=== PATIENT | male | born 1970 | race Caucasian/White ===

== ENCOUNTER 2024-04-03 23:19 | Emergency (ER) | payer BC ==
[~2024-04-03 23:19] MED LIST: EPINEPHrine 10 ML SYRINGE (0.1 MG/ML) ONE; SODIUM BICARB 8.4% 50 ML SYR (1 MEQ/ML) ONE
--- NOTE | 2024-04-03 23:51 | ED ---
CPR HPI - General Stated Complaint: cardiac arrest Time Seen by Provider: 04/03/24 23:19 Source: family, EMS Mode of arrival: EMS Limitations: altered mental status - History of Present Illness Initial Comments: This patient is a 53-year-old man arriving by ambulance after becoming unresponsive. Patient not able to provide any history. The patient's subsequently provided history. She stated that he had been complaining of chest pain for much of the day. There was pain reportedly radiating to the bilateral elbows. He did not initially want to have medical treatment. She states that after eating she went to rest and he woke her up stating that he wanted to go to the hospital. He had some shortness of breath as well. She states that after leaving home, the patient suddenly developed convulsion or seizure. She stopped the vehicle called ambulance. Was reportedly about 5 minutes prior to EMS arrival. EMS instituted ACLS protocol and brought the patient here. Patient reported asystole MD Complaint: collapsed during rest -: minute(s) Place: other Bystander CPR Performed: No Downtime Before ACLS Arrival (mins): 5 Initial Findings in the Field: unresponsive, no respirations, no pulse ROSC in the Field: No Associated Injuries: No Associated Symptoms: chest pain, shortness of breath Treatments Prior to Arrival: intubation, chest compressions, epinephrine mgs # (2) - Related Data Allergies Allergy/AdvReac Type Severity Reaction Status Date / Time Unable to Assess Allergy Verified 04/03/24 23:58 Review of Systems ROS Statement: Those systems with pertinent positive or pertinent negative responses have been documented in the HPI. ROS Other: All systems not noted in ROS Statement are negative. Limitations: ROS unobtainable due to patients medical condition General Exam Limitations: altered mental status General appearance: other (Unresponsive) Head exam: Present: atraumatic, normocephalic Eye exam: Absent: scleral icterus, conjunctival injection ENT exam: Present: other (Endotracheal tube secured with bite block) Neck exam: Present: normal inspection. Absent: tenderness Respiratory exam: Present: other (There is no spontaneous inspiratory effort. Auscultation with bagging reveals breath sounds) Cardiovascular Exam: Present: other (No detectable PMI. No cardiac sounds. No palpable pulses) GI/Abdominal exam: Present: soft. Absent: distended, tenderness, guarding, rebound, rigid, mass, pulsatile mass exam: Present: normal inspection Extremities exam: Present: normal inspection Back exam: Present: normal inspection Neurological exam: Present: other (Unresponsive) Expanded Eye Response: (1) no response Motor Response: (1) no motor response Verbal Response: (1) no verbal response Skin exam: Present: warm, dry, intact, cyanosis. Absent: rash Course Vital Signs 04/03/24 23:19 Temperature 97.0 F L Pulse Rate 0 L Respiratory 0 L Rate Blood Pressure 0/0 O2 Sat by Pulse 0 L Oximetry Medical Decision Making - Medical Decision Making Patient is 53-year-old man brought here unresponsive. ACLS protocol was continued. The patient did have a number of rounds of CPR with medications and there was no response. The patient is pronounced and I discussed case with the medical claims representative. Was pt. sent in by a medical professional or institution (, PA, FIRE PREVENTION ENGINEER, urgent care, hospital, or longterm...) When possible be specific @ -[No] Did you speak to anyone other than the patient for history (EMS, parent, family, police, friend...)? What history was obtained from this source @ -[EMS gave some history. The patient's gave most of the history Did you review nursing and triage notes (agree or disagree)? Why? @ -[I reviewed and agree with nursing and triage notes] Were old charts reviewed (outside hosp., previous admission, EMS record, old EKG, old radiological studies, urgent care reports/EKG's, longterm records)? Report findings @ -[No old charts were reviewed] Differential Diagnosis (chest pain, altered mental status, abdominal pain women, abdominal pain men, vaginal bleeding, weakness, fever, dyspnea, syncope, headache, dizziness, GI bleed, back pain, seizure, CVA, palpatations, mental health, musculoskeletal)? @ -[Differential Chest Pain: Stable Angina, Unstable Angina, STEMI, NSTEMI Aortic Dissection, Pneumothorax, Musculoskeletal, Esophageal Spasm GERD, Cholecystitis, Pancreatitis, Zoster, this is not meant to be an all-inclusive list. EKG interpreted by me (3pts min.). @ -[I interpreted as above] X-rays interpreted by me (1pt min.). @ -[None done] CT interpreted by me (1pt min.). @ -[None done] U/S interpreted by me (1pt. min.). @ -[None done] What testing was considered but not performed or refused? (CT, X-rays, U/S, labs)? Why? @ -[None] What meds were considered but not given or refused? Why? @ -[None] Did you discuss the management of the patient with other professionals (professionals i.e. , PA, FIRE PREVENTION ENGINEER, lab, RT, psych nurse, social and human services assistant, pan devulcanizer helper, teacher, staff antisubmarine officer, social work case manager)? Give summary @ -[No] Was smoking cessation discussed for >3mins.? @ -[No] Was critical care preformed (if so, how long)? @ -[No] Were there social determinants of health that impacted care today? How? (Homelessness, low income, unemployed, alcoholism, drug addiction, transportation, low edu. Level, literacy, decrease access to med. care, retirement, rehab)? @ -[No] Was there de-escalation of care discussed even if they declined (Discuss DNR or withdrawal of care, Hospice)? DNR status @ -[No] What co-morbidities impacted this encounter? (DM, HTN, Smoking, COPD, CAD, Cancer, CVA, ARF, Chemo, Hep., AIDS, mental health diagnosis, sleep apnea, morbid obesity)? @ -[None] Was patient admitted / discharged? Hospital course, mention meds given and route, prescriptions, significant lab abnormalities, going to OR and other pertinent info. @ -[The patient had ACLS protocol but did not have any response to resuscitative attempts and pronounced . Undiagnosed new problem with uncertain prognosis? @ -[No] Drug Therapy requiring intensive monitoring for toxicity (Heparin, Nitro, Insulin, Cardizem)? @ -[No] Were any procedures done? @ -[No] Diagnosis/symptom? @ -[Acute cardiopulmonary arrest Acute, or Chronic, or Acute on Chronic? @ -[Acute Uncomplicated (without systemic symptoms) or Complicated (systemic symptoms)? @ -[Yes, complicated Side effects of treatment? @ -[No] Exacerbation, Progression, or Severe Exacerbation? @ -[No] Poses a threat to life or bodily function? How? (Chest pain, [place], [place], pneumonia, PE, COPD, DKA, ARF, appy, cholecystitis, CVA, Diverticulitis, Homicidal, Suicidal, threat to staff... and all critical care pts) @ -[Yes Disposition Clinical Impression: Cardiopulmonary arrest Disposition: Condition: Undetermined Is patient prescribed a controlled substance at d/c from ED?: No Referrals: None,Stated [Primary Care Provider] - 1-2 days Preliminary Cause of : Cardiopulmonary arrest
[2024-04-04 00:08] VITALS: BP 0/0; PULSE 0; RESP 0; TEMP 97
== END 2024-04-04 03:44 | disposition expired ==
LOC: EC 23:19
DX: I46.9 Cardiac arrest, cause unspecified (principal)
CPT/HCPCS: 99285 ×2; 92950; J0171